=== PATIENT | female | born 1950 | race Hispanic/Latino ===

== ENCOUNTER → 2021-09-19 10:19 | Outpatient (CLI) | payer MEDICARE, SELFPAY ==
[2021-09-19 11:12] LABS: Add Manual Diff / Slide Review NO; Basophils Absolute Auto 100 /uL (0-100); Basophils Percent Auto 0.7 % (0-2); Eosinophils Absolute Auto 100 /uL (0-450); Eosinophils Percent Auto 0.9 % (2-4); Hematocrit 40.7 % (36-46); Hemoglobin 13.5 g/dL (12.0-16.0); Lymphocytes Absolute Auto 2800 /uL (1100-4500); Lymphocytes Percent Auto 32.6 % (25-40); Mean Corpuscular HGB Conc 33.1 % (30-36); Mean Corpuscular Hemoglobin 29.5 PG (26-34); Mean Corpuscular Volume 89.1 fL (80-100); Monocytes Absolute Auto 600 /uL (0-900); Monocytes Percent Auto 7.3 % (3-14); Neutrophils Absolute Auto 5000 /uL (1500-7000); Neutrophils Percent Auto 58.5 % (50-75); Platelet Count 225 X10^3/uL (150-400); Red Blood Cell Count 4.57 X10^6/uL (4.0-5.2); Red Cell Distribution Width 13.6 % (11.6-14.8); White Blood Cell Count 8.5 X10^3/uL (4.5-11.0)
[2021-09-19 11:20] LABS: Hemoglobin A1C% w Est Avg Glu 6.9 % (4.0-6.0)
[2021-09-19 11:59] LABS: Alanine Aminotransferase 32 IU/L (<35); Albumin 4.8 g/dL (3.5-5.0); Albumin Globulin Ratio 1.2 (1.0-2.8); Alkaline Phosphatase 69 U/L (38-126); Aspartate Aminotransferase 38 IU/L (14-36); BUN Creatinine Ratio 18.9 (6-22); Bilirubin Total 0.5 mg/dL (0.2-1.3); Blood Urea Nitrogen 14 mg/dL (7-17); Calcium 9.2 mg/dL (8.4-10.2); Carbon Dioxide 30 mmol/L (22-32); Chloride 103 mmol/L (98-107); Cholesterol 236 mg/dL (140-199); Estimated Glomerular Filt Rate > 60.0 mL/min (>60); Globulin 4.1 g/dL (1.7-4.1); Glucose 129 mg/dL (80-110); HDL Cholesterol 50 mg/dL (40-60); HEMOLYSIS 30 (0-50); LDL Cholesterol Calculated 163 mg/dL (<100); Potassium 3.8 mmol/L (3.4-5.1); Sodium 142 mmol/L (137-145); Total Protein 8.9 g/dL (6.3-8.2); Triglycerides 114 mg/dL (35-150)
[2021-09-19 13:29] LABS: TSH w/ Reflex to FT4 1.98 uIU/mL (0.47-4.68)
[2021-09-19 15:52] LABS: Creatinine Urine Random 133.6 mg/dL
[2021-09-19 15:54] LABS: Microalbumi Creatinin Ratio Ur 65.8 ug/mg CR (<30); Microalbumin Urine Random 8.8 mg/dL (0-1.6)
== END ==
PROVIDERS: PCP Internal Medicine; Referring Provider Internal Medicine; Visit Provider Internal Medicine
DX: E11.69 Type 2 diabetes mellitus with other specified complication (principal); E78.2 Mixed hyperlipidemia; E78.5 Hyperlipidemia, unspecified
CPT/HCPCS: 36415; 80053; 80061; 82043; 82570; 83036; 84443; 85025

== ENCOUNTER → 2021-12-19 10:43 | Outpatient (CLI) | payer MEDICARE, SELFPAY ==
[2021-12-19 12:21] LABS: Hemoglobin A1C% w Est Avg Glu 6.8 % (4.0-6.0)
[2021-12-19 12:23] LABS: Aspartate Aminotransferase 26 IU/L (14-36); Cholesterol 112 mg/dL (140-199); Glucose 84 mg/dL (80-110); HDL Cholesterol 47 mg/dL (40-60); LDL Cholesterol Calculated 48 mg/dL (<100); Triglycerides 86 mg/dL (35-150)
== END ==
PROVIDERS: PCP Internal Medicine; Referring Provider Internal Medicine; Visit Provider Internal Medicine
DX: E11.69 Type 2 diabetes mellitus with other specified complication (principal); E78.2 Mixed hyperlipidemia; E78.5 Hyperlipidemia, unspecified
CPT/HCPCS: 36415; 80061; 82947; 83036; 84450

== ENCOUNTER → 2022-01-05 11:28 | Outpatient (CLI) | payer MEDICARE, SELFPAY ==
--- NOTE | 2022-01-05 11:29 | DI.MG.S_ITS ---
BILATERAL DIGITAL SCREENING MAMMOGRAM 3D/2D WITH CAD: 01/05/2022 CLINICAL: Baseline by default. No prior exams were available for comparison. The tissue of both breasts is predominantly fatty. Current study was also evaluated with a Computer Aided Detection (CAD) system. There is a benign area of fat necrosis in the right breast. There also are benign calcifications in the right breast. No significant masses, calcifications, or other findings are seen in either breast. IMPRESSION: BENIGN There is no mammographic evidence of malignancy. A 1 year screening mammogram is recommended. Based on the Tyrer Cuzick model (a risk assessment model) the patient's lifetime risk is 2.4% and her 10 year risk is 1.4%. According to the ACR, ACS, and NCCN guidelines, an annual breast MRI exam along with mammogram is recommended if the patient's lifetime risk is 20% or greater. This exam was interpreted at Station ID: [id number]. NOTE: For mammograms, a report in lay terms will be sent to the patient. Approximately 15% of breast malignancies will not be visualized mammographically. In the management of a palpable breast mass, a negative mammogram must not discourage biopsy of a clinically suspicious lesion. Electronically Signed By: Margarita richards/kati:01/05/2022 14:52:53 letter sent: Normal Exam ACR BI-RADS Category 2: Benign Finding(s) 3342F
== END ==
PROVIDERS: PCP Internal Medicine; Referring Provider Internal Medicine; Visit Provider Internal Medicine
DX: Z13.820 Encounter for screening for osteoporosis (principal); Z12.31 Encounter for screening mammogram for malignant neoplasm of breast; M85.851 Other specified disorders of bone density and structure, right thigh; M85.852 Other specified disorders of bone density and structure, left thigh; Z78.0 Asymptomatic menopausal state
CPT/HCPCS: 77063; 77067; 77080

== ENCOUNTER 2022-03-06 11:58 | Emergency (ER) | payer MEDICARE, SELFPAY ==
[2022-03-06] VITALS (7 sets, daily range): BP systolic 135–167; BP diastolic 63–77; PULSE 67–84; RESP 16; TEMP 36.3; O2SAT 96–99; BMI 32.8
--- NOTE | 2022-03-06 12:32 | DI.RAD.S_ITS ---
PROCEDURE: XR KNEE RT 3V INDICATIONS: fall TECHNIQUE: 3 views of the knee were acquired. COMPARISON: None. FINDINGS: Bones: No fractures or dislocations. No suspicious bony lesions. Soft tissues: No joint effusion. No suspicious soft tissue calcifications. IMPRESSION: No acute radiographic findings. If pain persists, followup imaging in 5-7 days is recommended to exclude occult fracture. Dictated by: Doris Joiner M.D. on 03/06/2022 at 13:03 Approved by: Doris Joiner M.D. on 03/06/2022 at 13:03
--- NOTE | 2022-03-06 12:32 | DI.CT.S_ITS ---
PROCEDURE: CT CERVICAL SPINE WO CON INDICATIONS: fall TECHNIQUE: Noncontrast 3 mm thick sections acquired from the skull base to the T4 level. Sagittal and coronal reformats were then constructed. For radiation dose reduction, the following was used: automated exposure control, adjustment of mA and/or kV according to patient size. COMPARISON: None. FINDINGS: Image quality: Excellent. Bones: No fractures or dislocations. Degenerative changes are present within the mid and lower cervical spine including intervertebral disc space narrowing, endplate sclerosis, and osteophytosis. Visualized superior ribs are intact. Soft tissues: Prevertebral soft tissues are normal in thickness. No paravertebral hematomas. No apical pneumothoraces. IMPRESSION: 1. No acute cervical spine injury. 2. Degenerative change. Dictated by: Doris Joiner M.D. on 03/06/2022 at 13:04 Approved by: Doris Joiner M.D. on 03/06/2022 at 13:06
--- NOTE | 2022-03-06 12:32 | DI.CT.S_ITS ---
PROCEDURE: CT HEAD/BRAIN WO CON INDICATIONS: fall TECHNIQUE: Noncontrast 4.5 mm thick angled axial sections acquired from the foramen magnum to the vertex, with coronal and sagittal reformats. For radiation dose reduction, the following was used: automated exposure control, adjustment of mA and/or kV according to patient size. COMPARISON: None. FINDINGS: Image quality: Excellent. CSF spaces: Basal cisterns are patent. No extra-axial fluid collections. The ventricles are symmetric in size and shape. Brain: No intracranial bleeds. There is a 2.1 x 2.0 x 2.6 cm intermediate density suprasellar mass. There is some rim calcification around this mass and bony remodeling of the sella turcica. There is mild cerebral volume loss for age, with resultant ventricular and sulcal prominence. There are periventricular and deep white matter chronic small vessel ischemic changes. There is intracranial internal carotid artery atherosclerosis. Skull and face: Calvarium and visualized facial bones appear intact, without suspicious lesions. Sinuses: Visualized sinuses and mastoids are clear. IMPRESSION: 1. No acute intracranial findings. 2. Intermediate density suprasellar mass or high density cystic lesion. Nonemergent pituitary protocol MRI of the brain recommended to further characterize this finding. Dictated by: Doris Joiner M.D. on 03/06/2022 at 13:12 Approved by: Doris Joiner M.D. on 03/06/2022 at 13:16
--- NOTE | 2022-03-06 12:32 | DI.CT.S_ITS ---
PROCEDURE: CT FACIAL BONES WO CON INDICATIONS: fall TECHNIQUE: Noncontrast 2.5 mm thick axial images acquired from the mandible through the frontal sinuses, with coronal and sagittal reformatting. For radiation dose reduction, the following was used: automated exposure control, adjustment of mA and/or kV according to patient size. COMPARISON: None. FINDINGS: Image quality: Excellent. Bones and teeth: Orbital matos are intact. Sinus matos show no fracture or deformity. Nasal bones and septum are intact. Visualized portions of the mandible demonstrate no fractures or subluxation. Zygomatic arches are intact. Pterygoid plates are intact. Visualized portions of the skull base and auditory canals are intact. Sinuses: Paranasal sinuses are aerated, without fluid levels, mucosal thickening, or mucoceles. Mastoid air cells are aerated. Soft tissues: No edema, masses, or fluid collections. No enlarged lymph nodes. No soft tissue lacerations or debris. Vascular: Visualized vascular structures appear normal in the absence of contrast. Bony vascular foramina and canals are intact. IMPRESSION: No acute maxillofacial injury. Dictated by: Doris Joiner M.D. on 03/06/2022 at 13:06 Approved by: Doris Joiner M.D. on 03/06/2022 at 13:11
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
[2022-03-06] MEDS: SODIUM CHLORIDE 0.9% 1,000 ML 1000 ML IV (13:10)
[2022-03-06 13:31] LABS: Add Manual Diff / Slide Review NO; Basophils Absolute Auto 0 /uL (0-100); Basophils Percent Auto 0.6 % (0-2); Eosinophils Absolute Auto 100 /uL (0-450); Hematocrit 38.8 % (36-46); Hemoglobin 13.1 g/dL (12.0-16.0); Lymphocytes Absolute Auto 2200 /uL (1100-4500); Lymphocytes Percent Auto 26.3 % (25-40); Mean Corpuscular HGB Conc 33.7 % (30-36); Mean Corpuscular Hemoglobin 29.4 PG (26-34); Mean Corpuscular Volume 87.1 fL (80-100); Monocytes Absolute Auto 600 /uL (0-900); Monocytes Percent Auto 7.2 % (3-14); Neutrophils Absolute Auto 5400 /uL (1500-7000); Neutrophils Percent Auto 64.9 % (50-75); Platelet Count 196 X10^3/uL (150-400); Red Blood Cell Count 4.45 X10^6/uL (4.0-5.2); Red Cell Distribution Width 14.2 % (11.6-14.8); White Blood Cell Count 8.4 X10^3/uL (4.5-11.0)
[2022-03-06 14:00] LABS: Alanine Aminotransferase 21 IU/L (<35); Albumin 4.7 g/dL (3.5-5.0); Albumin Globulin Ratio 1.2 (1.0-2.8); Alkaline Phosphatase 69 U/L (38-126); Aspartate Aminotransferase 28 IU/L (14-36); BUN Creatinine Ratio 20.8 (6-22); Bilirubin Total 0.5 mg/dL (0.2-1.3); Blood Urea Nitrogen 16 mg/dL (7-17); Calcium 9.6 mg/dL (8.4-10.2); Carbon Dioxide 29 mmol/L (22-32); Chloride 98 mmol/L (98-107); Creatine Kinase 65 U/L (30-135); Estimated Glomerular Filt Rate > 60 mL/min (>60); Globulin 3.8 g/dL (1.7-4.1); Glucose 135 mg/dL (80-110); HEMOLYSIS < 15 (0-50); Potassium 4.1 mmol/L (3.4-5.1); Sodium 139 mmol/L (137-145); Total Protein 8.5 g/dL (6.3-8.2)
[2022-03-06 14:10] LABS: Troponin I < 0.012 ng/mL (0.01-0.034)
== END 2022-03-06 15:01 | disposition home or self-care (01) ==
PROVIDERS: Emergency Provider Emergency Medicine; PCP Internal Medicine
DX: S09.93XA Unspecified injury of face, initial encounter (principal); R42 Dizziness and giddiness; R07.9 Chest pain, unspecified; W19.XXXA Unspecified fall, initial encounter
CPT/HCPCS: 36415; 70450; 70486; 72125; 73562; 80053; 82550; 84484; 85025; 93005; 99284

== ENCOUNTER → 2022-03-22 11:37 | Outpatient (CLI) | payer MEDICARE, SELFPAY ==
--- NOTE | 2022-03-22 11:38 | DI.MRI.S_ITS ---
PROCEDURE: MR BRAIN (PITUITARY) WWO CON INDICATIONS: pituitary mass TECHNIQUE: Noncontrast sagittal and axial FLAIR, axial gradient echo, axial diffusion and ADC through the brain. Thin-slice sagittal and coronal T1 spin echo, coronal T2 fast spin echo through the pituitary. After the administration contrast, optional dynamic coronal T1 spin echo, thin-slice coronal and sagittal T1 spin echo images through the pituitary fossa; axial and coronal and sagittal T1 spin echo with fat saturation through the brain. COMPARISON: [facility], CT, CT HEAD/BRAIN WO CON, 03/06/2022, 12:51. FINDINGS: Image quality: Excellent. Pituitary Gland: Arising from the sella extending into the suprasellar space, there is a focal wedging easily enhancing mass lesion measuring 2.1 x 1.5 x 2.6 cm. There is invasion the left cavernous sinus but no entrapment of the cavernous ICA which has an normal flow void. There is thinning and superior displacement of the optic chiasm. CSF Spaces: Ventricles are normal in size and shape. Basal cisterns are patent. No extra-axial fluid collections. Brain: No intracranial bleeds or mass effects. No abnormal intracranial enhancement. Birch-white matter interface is intact. Diffusion weighted images demonstrate no infarct. Brainstem is normal. Normal intravascular flow voids are present. Skull and face: Calvarial marrow is normal in signal. Orbits appear normal. Sinuses: Sinuses and mastoids are clear. 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 There is invasion of the left cavernous sinus and superior displacement of the optic chiasm Approved by: Salvador Baez M.D. on 03/22/2022 at 16:54
== END ==
PROVIDERS: PCP Internal Medicine; Referring Provider Internal Medicine; Visit Provider Internal Medicine
DX: E23.6 Other disorders of pituitary gland (principal)
CPT/HCPCS: 70553; A9579

== ENCOUNTER → 2022-03-23 16:53 | Outpatient (CLI) | payer MEDICARE, SELFPAY ==
[2022-03-23 18:34] LABS: Luteinizing Hormone 2.08 mIU/mL; Prolactin 42.4 ng/mL (3.0-18.6)
[2022-03-23 18:48] LABS: Cortisol Random 6.43 ug/dL
[2022-03-23 19:32] LABS: TSH w/ Reflex to FT4 2.24 uIU/mL (0.47-4.68)
== END ==
PROVIDERS: PCP Internal Medicine; Referring Provider Internal Medicine; Visit Provider Internal Medicine
DX: E11.69 Type 2 diabetes mellitus with other specified complication (principal); E23.6 Other disorders of pituitary gland; E78.5 Hyperlipidemia, unspecified
CPT/HCPCS: 36415; 82533; 83001; 83002; 83036; 84146; 84443

== ENCOUNTER → 2022-05-25 11:04 | Outpatient (CLI) | payer MEDICARE, SELFPAY ==
[2022-05-25 12:37] LABS: Sodium 137 mmol/L (137-145)
[2022-05-25 14:13] LABS: Prolactin 33.7 ng/mL (3.0-18.6)
[2022-05-25 15:24] LABS: Follicle Stimulating Hormone 3.33 mIU/mL
== END ==
PROVIDERS: PCP Internal Medicine; Referring Provider Physician Assistant; Visit Provider Physician Assistant
DX: E11.69 Type 2 diabetes mellitus with other specified complication (principal); D49.7 Neoplasm of unspecified behavior of endocrine glands and other parts of nervous system; E23.6 Other disorders of pituitary gland; E78.5 Hyperlipidemia, unspecified
CPT/HCPCS: 36415; 83001; 83036; 84146; 84295

== ENCOUNTER 2022-05-28 08:59 | Emergency (ER) | payer MEDICARE, SELFPAY ==
[2022-05-28 09:16] VITALS: BP 144/75; PULSE 109; RESP 18; TEMP 36.4; O2SAT 98; BMI 30.7
--- NOTE | 2022-05-28 09:30 | DI.CT.S_ITS ---
PROCEDURE: CT HEAD/BRAIN WO CON INDICATIONS: post tumor removal TECHNIQUE: Noncontrast 4.5 mm thick angled axial sections acquired from the foramen magnum to the vertex, with coronal and sagittal reformats. For radiation dose reduction, the following was used: automated exposure control, adjustment of mA and/or kV according to patient size. COMPARISON: [facility], CT, CT HEAD/BRAIN WO CON, 03/06/2022, 12:51. FINDINGS: Image quality: Excellent CSF spaces: Basal cisterns are patent. Lateral ventricles are symmetric. Volume: [id number] volume loss Brain: No acute intracranial hemorrhage. The sella, there is hyperdensity, packing, and postoperative changes. Size at hyperdensity is decreased compared to 03/06/2022. Rim calcifications are present. No gross loss of red-white differentiation. Craniofacial structures: Postoperative sinus opacification. IMPRESSION: Postoperative changes of the sella and paranasal sinuses. There is remaining hyperdensity of the pituitary region mass likely representing a combination postsurgical changes and possible residual lesion. Consider MRI surveillance. Otherwise no acute intracranial changes Dictated by: Rober Sanchez M.D. on 05/28/2022 at 9:34 Approved by: Rober Sanchez M.D. on 05/28/2022 at 9:38
--- NOTE | 2022-05-28 09:30 | ED.EPISTAXIS ---
HPI - Epistaxis General Chief complaint: Nasal Problem Stated complaint: NOSE BLEED 30MIN, BRAIN SURGERY 05/19 Time Seen by Provider: 05/28/22 09:13 Source: family Mode of arrival: Wheelchair History of Present Illness HPI Narrative: Patient is a 72-year-old female history of type 2 diabetes hypertension presenting after brain tumor removal a [facility] on May. This morning she woke up with epistaxis resting greater than 30 minutes it was recommended that she come to the ED for further evaluation. She is no numbness tingling weakness nausea vomiting chest pain or other symptoms. Bleeding now seems to have stopped. She is not on any antiplatelet or anticoagulation medication. Records from [facility] have been requested Related Data Previous Rx's Medication Instructions Recorded rosuvastatin 10 mg tablet 10 mg PO DAILY #90 tabs 09/19/21 amlodipine 2.5 mg tablet 2.5 mg PO BEDTIME #90 tabs 12/19/21 glyburide 5 mg tablet 5 mg PO BID #180 tabs 03/28/22 losartan 50 mg tablet 50 mg PO BID #180 tabs 03/28/22 metformin 850 mg tablet 850 mg PO BID #180 tabs 03/28/22 Allergies Allergy/AdvReac Type Severity Reaction Status Date / Time No Known Drug Allergies Allergy Verified 05/28/22 09:16 Review of Systems Review of Systems Narrative: GENERAL: Denies chills, fatigue, malaise, fever, sweats, travel HEENT: Denies sinus pain, ear pain, sore throat, difficulty swallowing, neck pain RESPIRATORY: Denies dyspnea, cough, wheezing, hemoptysis, sputum. CARDIOVASCULAR: Denies chest pain, palpitations, orthopnea, edema GASTROINTESTINAL: Denies nausea, vomiting, abdominal pain, diarrhea, constipation, melena. : Denies dysuria, frequency, incontinence, hematuria, urinary retention, flank pain. MUSCULOSKELETAL: Denies weakness, joint pain, or bony pain SKIN: No rash, no erythema, no pruritus NEUROLOGIC: Denies weakness, dizziness, headache, numbness, change in speech, confusion PSYCHIATRIC: No concerning psychosocial issues. 12 point review of systems is negative except for those stated above and HPI Patient History Medical History DM type 2 with diabetic dyslipidemia Essential hypertension History of urinary incontinence Mixed hyperlipidemia Obesity (BMI 30.0-34.9) Pituitary mass Surgical History Anesthesia History of surgery (~1972) History of tubal ligation Family History Father Diabetes mellitus Mother Diabetes mellitus Brother Diabetes mellitus Social History marital status: details: Three children (one /miscarriage) Smoking Status: Never smoker Smoking Status: Never smoker alcohol intake frequency: 0-2 drinks per day Substance Use Type: does not use Exam Initial Vital Signs Initial Vital Signs: Vital Signs Temperature 97.5 F L 05/28/22 09:16 Pulse Rate 109 H 05/28/22 09:16 Respiratory Rate 18 05/28/22 09:16 Blood Pressure 144/75 H 05/28/22 09:16 Pulse Oximetry 98 05/28/22 09:16 Oxygen Delivery Method 05/28/22 09:16 GENERAL: Alert pleasant 72-year-old female and in no acute distress. HEENT: Head atraumatic,EOMI, pupils reactive, face symmetric, moist mucous membranes NOSE: Epistaxis seems controlled at this time. CARDIOVASCULAR: Regular rate and rhythm without murmurs, rubs or gallops. RESPIRATORY: Breath sounds equal bilaterally, no wheezes rales or rhonchi. ABDOMEN: Soft, nontender. Normoactive bowel sounds all 4 quadrants. No guarding or rebound. EXTREMITIES: Normal range of motion, no clubbing or edema. Neurovascularly intact NEUROLOGICAL: Alert and oriented x4.Normal gait and speech. Cranial nerves II through XII grossly intact. Principal Mechanical Engineer strength equal bilaterally moving lower extremities equally SKIN: Warm, dry, no laceration, no petechiae, no rashes or lesions. Course Orders Ordered: ED Orders 05/28/22 09:30 CT head/brain wo con Stat Vital Signs Vital signs: Vital Signs - 8 hr 05/28/22 09:16 05/28/22 12:04 Temperature 97.5 F L Pulse Rate 109 H 92 H Respiratory Rate 18 18 Blood Pressure 144/75 H 159/74 H Pulse Oximetry 98 96 Oxygen Delivery Method Room Air Room Air MDM - Epistaxis Imaging Data CT scan - head: Radiologist's Impression: Signed Patient: Annette Alas MR#: [id number] : 1950 Acct:[id number] Age/Sex: 72 / F Date of Service: 05/28/22 Loc: ED Accession Number: [id number] ?? Procedure: CT head/brain wo con Ordering Provider: Franny Hunter D.O. PROCEDURE:? CT HEAD/BRAIN WO CON ? INDICATIONS:? post tumor removal ? TECHNIQUE:? Noncontrast 4.5 mm thick angled axial sections acquired from the foramen magnum to the vertex, with coronal and sagittal reformats.? For radiation dose reduction, the following was used:? automated exposure control, adjustment of mA and/or kV according to patient size.? ? COMPARISON:? [facility], CT, CT HEAD/BRAIN WO CON, 03/06/2022, 12:51. ? FINDINGS:? Image quality: Excellent ? CSF spaces: Basal cisterns are patent. Lateral ventricles are symmetric. Volume:? Adpt-ji-qvkeqsrj volume loss ? Brain:? No acute intracranial hemorrhage.? The sella, there is hyperdensity, packing, and postoperative changes.? Size at hyperdensity is decreased compared to 03/06/2022.? Rim calcifications are present. No gross loss of red-white differentiation. ? Craniofacial structures:? Postoperative sinus opacification. ? IMPRESSION:? Postoperative changes of the sella and paranasal sinuses.? There is remaining hyperdensity of the pituitary region mass likely representing a combination postsurgical changes and possible residual lesion.? Consider MRI surveillance. Otherwise no acute intracranial changes? ? ? Dictated by: Rober Sanchez M.D. on 05/28/2022 at 9:34 ? ? Approved by: Rober Sanchez M.D. on 05/28/2022 at 9:38 ? [facility] Narrative Medical decision making narrative: Patient recently had pituitary adenoma removed done transnasally she is postop day 9. Her epistaxis is well controlled. She is not on any anticoagulation. She is neurovascularly intact. I spoke with Dr. Edmonds at [facility] who states that at this time patient can be discharged he has reviewed the CT. Patient is ambulatory in the ED able to go the restroom. She is afebrile. At this time there is no need for blood work or any sort of further workup or intervention. Discharge Plan Departure Patient Disposition: Home Clinical Impression: Epistaxis Instructions: DI for Nosebleed Activity Restrictions/Additional Instructions: *You have been diagnosed with epistaxis *What to do: At this time he is nasal clamp if you should have further bleeding I discussed with Neurosurgery. Please follow-up as directed *Continue to take medications as directed *Follow up with your primary care provider in 2-3 days or call [phone] *Return to ER if you should have increasing bleeding more than 30 minutes despite clamp. Weakness numbness tingling vomiting or any new, worsening or concerning symptoms Prescriptions: No Action glyburide 5 mg tablet 5 mg PO BID Qty: 180 1RF metformin 850 mg tablet 850 mg PO BID Qty: 180 1RF losartan 50 mg tablet 50 mg PO BID Qty: 180 1RF rosuvastatin 10 mg tablet 10 mg PO DAILY Qty: 90 3RF amlodipine 2.5 mg tablet 2.5 mg PO BEDTIME Qty: 90 3RF Referrals: Thanh Corea MD [Primary Care Provider] - Visit Report Forms: Patient Portal/API
[2022-05-28 12:04] VITALS: BP 159/74; PULSE 92; RESP 18; O2SAT 96
== END 2022-05-28 12:07 | disposition home or self-care (01) ==
PROVIDERS: Emergency Provider Emergency Medicine; PCP Internal Medicine
DX: R04.0 Epistaxis (principal); Z98.890 Other specified postprocedural states; Z86.69 Personal history of other diseases of the nervous system and sense organs
CPT/HCPCS: 70450; 99281; 99283

== ENCOUNTER → 2022-08-09 09:13 | Outpatient (CLI) | payer MEDICARE, SELFPAY ==
[2022-08-09 13:19] LABS: Free T4, Direct Thyroxine 1.01 ng/dL (0.78-2.19)
[2022-08-09 13:25] LABS: Prolactin 19.9 ng/mL (3.0-18.6)
[2022-08-09 13:33] LABS: Thyroid Stimulating Hormone 3.59 uIU/mL (0.47-4.68)
[2022-08-09 13:39] LABS: Cortisol Random 11.7 ug/dL
== END ==
PROVIDERS: PCP Internal Medicine; Referring Provider Internal Medicine Endocrinology, Diabetes & Metabolism; Visit Provider Internal Medicine Endocrinology, Diabetes & Metabolism
DX: D35.2 Benign neoplasm of pituitary gland (principal)
CPT/HCPCS: 36415; 82533; 84146; 84305; 84436; 84439; 84443

== ENCOUNTER → 2022-12-25 15:13 | Outpatient (CLI) | payer MEDICARE, SELFPAY ==
[2022-12-25 16:09] LABS: Aspartate Aminotransferase 25 IU/L (14-36); Blood Urea Nitrogen 15 mg/dL (7-17); Calcium 9.3 mg/dL (8.4-10.2); Carbon Dioxide 31 mmol/L (22-32); Chloride 104 mmol/L (98-107); Cholesterol 129 mg/dL (140-199); Estimated Glomerular Filt Rate > 60 mL/min (>60); Glucose 126 mg/dL (80-110); HDL Cholesterol 59 mg/dL (40-60); HEMOLYSIS < 15 (0-50); LDL Cholesterol Calculated 45 mg/dL (<100); Potassium 3.6 mmol/L (3.4-5.1); Sodium 141 mmol/L (137-145); Triglycerides 123 mg/dL (35-150)
[2022-12-25 17:37] LABS: Creatinine Urine Random 71.8 mg/dL
[2022-12-25 17:40] LABS: Microalbumi Creatinin Ratio Ur 22.2 ug/mg CR (<30); Microalbumin Urine Random 1.6 mg/dL (0-1.6)
[2022-12-26 03:21] LABS: x Labcorp Estim. Avg Glu (eAG) 151 mg/dL (.); x Labcorp Hemoglobin A1c 6.9 % (4.8-5.6)
== END ==
PROVIDERS: PCP Internal Medicine; Referring Provider Internal Medicine; Visit Provider Internal Medicine
DX: E11.69 Type 2 diabetes mellitus with other specified complication (principal); E78.2 Mixed hyperlipidemia; E78.5 Hyperlipidemia, unspecified; I10 Essential (primary) hypertension
CPT/HCPCS: 36415; 80048; 80061; 82043; 82570; 83036; 84450

== ENCOUNTER → 2023-01-08 14:56 | Outpatient (CLI) | payer MEDICARE, SELFPAY ==
--- NOTE | 2023-01-08 | DI.MG.S_ITS ---
BILATERAL DIGITAL SCREENING MAMMOGRAM 3D/2D WITH CAD: 01/08/2023 CLINICAL: Routine screening. Comparison is made to exam dated: 01/05/2022 mammogram - [facility]. Both breasts are almost entirely fatty (category a/<25% glandular tissue). Current study was also evaluated with a Computer Aided Detection (CAD) system. There is a benign area of fat necrosis in the right breast. There also are benign calcifications in the right breast. No significant masses, calcifications, or other findings are seen in either breast. There has been no significant interval change. IMPRESSION: BENIGN There is no mammographic evidence of malignancy. A 1 year screening mammogram is recommended. Based on the Tyrer Cuzick model (a risk assessment model) the patient's lifetime risk is 2.2% and her 10 year risk is 1.4%. According to the ACR, ACS, and NCCN guidelines, an annual breast MRI exam along with mammogram is recommended if the patient's lifetime risk is 20% or greater. This exam was interpreted at Station ID: [id number]. NOTE: For mammograms, a report in lay terms will be sent to the patient. Approximately 15% of breast malignancies will not be visualized mammographically. In the management of a palpable breast mass, a negative mammogram must not discourage biopsy of a clinically suspicious lesion. Electronically Signed By: Doris oliveira/kati:01/08/2023 16:46:03 letter sent: Normal Exam ACR BI-RADS Category 2: Benign Finding(s) 3342F
== END ==
PROVIDERS: PCP Internal Medicine; Referring Provider Internal Medicine; Visit Provider Internal Medicine
DX: Z12.31 Encounter for screening mammogram for malignant neoplasm of breast (principal)
CPT/HCPCS: 77063; 77067

== ENCOUNTER 2023-03-02 09:08 | Day surgery (SDC) | payer MEDICARE, SELFPAY ==
[2023-03-02 09:28] VITALS: BP 136/78; PULSE 96; RESP 16; TEMP 36.3; O2SAT 98; BMI 29.6
[2023-03-02] MEDS: LACTATED RINGERS 1,000 ML 150 ML IV (09:42)
--- NOTE | 2023-03-02 10:26 | PM.HP.1 ---
History of Present Illness History of Present Illness Date Patient Seen: 03/02/23 Time Patient Seen: 10:26 Chief complaint: [facility] [place] Narrative: Colon cancer screening w/o concerning symptoms. Had one prior scope many years ago [facility] Medical History DM type 2 with diabetic dyslipidemia Essential hypertension History of prolactinoma History of urinary incontinence Mixed hyperlipidemia Obesity (BMI 30.0-34.9) Overweight Prolactinoma Surgical History Anesthesia History of surgery (~1971) History of tubal ligation Status post transsphenoidal pituitary resection Family History Father Diabetes mellitus Mother Diabetes mellitus Brother Diabetes mellitus Social History marital status: details: Three children (one /miscarriage) household members: family Smoking Status: Never smoker Meds Home Medications and Allergies Home Medications Medication Instructions Recorded Confirmed Type losartan 50 mg tablet 50 mg PO BID #180 tabs 10/02/22 03/02/23 Rx metformin 850 mg tablet 850 mg PO BID #180 tabs 10/02/22 03/02/23 Rx glipizide 5 mg tablet 5 mg PO BID #180 tabs 10/09/22 03/02/23 Rx rosuvastatin 10 mg tablet 10 mg PO DAILY #90 tabs 10/09/22 03/02/23 Rx amlodipine 2.5 mg tablet 2.5 mg PO BEDTIME #90 tabs 01/01/23 03/02/23 Rx Allergies Allergy/AdvReac Type Severity Reaction Status Date / Time No Known Drug Allergies Allergy Verified 03/02/23 09:25 Review of Systems Review of Systems ROS: Yes All systems reviewed with the patient and are negative except as otherwise documented Exam Vital Signs (past 8 hours): - 03/02/23 09:28 Temperature 97.4 F L Pulse Rate 96 H Respiratory Rate 16 Blood Pressure 136/78 Pulse Oximetry 98 Oxygen Delivery Method Room Air Oxygen Delivery Method Room Air Const General: cooperative, healthy appearing and comfortable Nutritional Appearance: average body habitus HENMT Head: normocephalic and atraumatic Face and sinus: normal facial exam Eyes Sclera: sclerae normal Neck Neck: trachea midline Resp Effort & Inspection: normal respiratory effort and able to speak in complete sentences Cardio Rate: tachycardic Rhythm: regular rhythm GI Palpation: soft Skin General: turgor normal Neuro General: patient alert, patient awake and patient oriented x3 Cognition: normal cognition Psych Judgment: judgment good Objective ECG Impression: colon cancer screening using colonoscopy with anesthesia Assessment & Plan Time Spent With Patient Time with patient: less than 30 minutes
--- NOTE | 2023-03-02 10:51 | PM.OP.COLON ---
Operative Date/Time/Diagnoses Date of procedure: 03/02/23 Time of procedure: 10:51 Pre-op diagnosis: Colon cancer screening Post-op diagnosis: same Procedure & Clinicians Study performed: Colonoscopy with anesthesia Same procedure as scheduled: Yes Indications: Colon cancer screening Surgeon: Kathryn Singh Procedure Notes Procedure in detail: Preop diagnosis: Colon cancer screening Postop diagnosis: Same Operative procedure: Colonoscopy with anesthesia Surgeon: Ester Singh MD Findings: Mild small diverticuli within the sigmoid colon, no polyps no masses. Procedure: Patient placed in a lateral position. Rectal exam performed showing normal tone no masses. Colonoscope inserted into the rectum and advanced to ileocecal valve with minimal difficulty. Insufflation and extraction of the scope and the above findings. Retroflex was included in the rectum. Impression: Normal colonoscopy with mild small diverticuli in the sigmoid colon. No polyps. Plan: Repeat colonoscopy in 10 years unless otherwise indicated by change in clinical condition Specimen(s): none sent Complications: none Post-procedure Recommendations: Colonoscopy in 10 years Follow up: as needed Disposition: PACU
[2023-03-02 10:54] VITALS: BP 80/44; PULSE 76; RESP 14; TEMP 36.3; O2SAT 97
[2023-03-02 10:59] VITALS: BP 95/46; PULSE 77; RESP 11; O2SAT 97
[2023-03-02 11:09] VITALS: BP 101/62; PULSE 76; RESP 18; O2SAT 94
== END 2023-03-02 11:31 | disposition home or self-care (01) ==
PROVIDERS: PCP Internal Medicine; Referring Provider Surgery; Visit Provider Surgery
PROC: 0DJD8ZZ Inspection of Lower Intestinal Tract, Via Natural or Artificial Opening Endoscopic (ICD-10-PCS; CPT 45378; principal; 2023-03-02 10:15)
DX: Z12.11 Encounter for screening for malignant neoplasm of colon (principal); K57.30 Diverticulosis of large intestine without perforation or abscess without bleeding
CPT/HCPCS: G0121; J2704

== ENCOUNTER → 2023-07-02 14:44 | Outpatient (CLI) | payer OTHER, SELFPAY ==
[2023-07-02 17:22] LABS: Blood Urea Nitrogen 13 mg/dL (7-17); Calcium 9.5 mg/dL (8.4-10.2); Carbon Dioxide 26 mmol/L (22-32); Chloride 104 mmol/L (98-107); Estimated Glomerular Filt Rate > 60 mL/min (>60); Glucose 113 mg/dL (80-110); HEMOLYSIS < 15 (0-50); Potassium 3.8 mmol/L (3.4-5.1); Sodium 141 mmol/L (137-145)
[2023-07-03 11:09] LABS: Hemoglobin A1C% w Est Avg Glu 6.7 % (4.0-6.0)
== END ==
PROVIDERS: PCP Internal Medicine; Referring Provider Internal Medicine; Visit Provider Internal Medicine
DX: E11.69 Type 2 diabetes mellitus with other specified complication (principal); E78.5 Hyperlipidemia, unspecified; I10 Essential (primary) hypertension
CPT/HCPCS: 36415; 80048; 83036

== ENCOUNTER → 2024-01-02 14:45 | Outpatient (CLI) | payer MEDICARE, SELFPAY ==
[2024-01-02 17:01] LABS: Aspartate Aminotransferase 26 IU/L (14-36); Blood Urea Nitrogen 14 mg/dL (7-17); Calcium 9.4 mg/dL (8.4-10.2); Carbon Dioxide 27 mmol/L (22-32); Chloride 106 mmol/L (98-107); Cholesterol 128 mg/dL (140-199); Estimated Glomerular Filt Rate > 60 mL/min (>60); Glucose 145 mg/dL (80-110); HDL Cholesterol 60 mg/dL (40-60); HEMOLYSIS < 15 (0-50); LDL Cholesterol Calculated 42 mg/dL (<100); Potassium 3.7 mmol/L (3.4-5.1); Sodium 142 mmol/L (137-145); Triglycerides 132 mg/dL (35-150)
[2024-01-02 17:10] LABS: Creatinine Urine Random 94.52 mg/dL
== END ==
LOC: LAB 14:46
PROVIDERS: PCP Internal Medicine; Referring Provider Internal Medicine; Visit Provider Internal Medicine
DX: E11.69 Type 2 diabetes mellitus with other specified complication (principal); E78.2 Mixed hyperlipidemia; I10 Essential (primary) hypertension; E78.5 Hyperlipidemia, unspecified
CPT/HCPCS: 36415; 80048; 80061; 82043; 82570; 83036; 84450

== ENCOUNTER → 2024-01-22 15:07 | Outpatient (CLI) | payer MEDICARE, SELFPAY ==
--- NOTE | 2024-01-22 15:09 | DI.MG.S_ITS ---
BILATERAL DIGITAL SCREENING MAMMOGRAM 3D/2D WITH CAD: 01/22/2024 CLINICAL: Routine screening. Comparison is made to exams dated: 01/08/2023 mammogram and 01/05/2022 mammogram - [facility]. Both breasts are almost entirely fatty (category a/<25% glandular tissue). Current study was also evaluated with a Computer Aided Detection (CAD) system. There is a benign area of fat necrosis in the right breast. There also are benign calcifications in the right breast. No significant masses, calcifications, or other findings are seen in either breast. There has been no significant interval change. IMPRESSION: BENIGN There is no mammographic evidence of malignancy. A 1 year screening mammogram is recommended. Based on the Tyrer Cuzick model (a risk assessment model) the patient's lifetime risk is 2.0% and her 10 year risk is 1.5%. According to the ACR, ACS, and NCCN guidelines, an annual breast MRI exam along with mammogram is recommended if the patient's lifetime risk is 20% or greater. This exam was interpreted at Station ID: [id number]. NOTE: For mammograms, a report in lay terms will be sent to the patient. Approximately 15% of breast malignancies will not be visualized mammographically. In the management of a palpable breast mass, a negative mammogram must not discourage biopsy of a clinically suspicious lesion. Electronically Signed By: Farhan colby/kati:01/24/2024 09:12:18 letter sent: Normal Exam ACR BI-RADS Category 2: Benign Finding(s) 3342F
== END ==
PROVIDERS: PCP Internal Medicine; Referring Provider Internal Medicine; Visit Provider Internal Medicine
DX: Z12.31 Encounter for screening mammogram for malignant neoplasm of breast (principal); R92.313 Mammographic fatty tissue density, bilateral breasts
CPT/HCPCS: 77063; 77067

== ENCOUNTER 2024-04-04 13:48 | Emergency (ER) | payer MEDICARE, SELFPAY ==
[2024-04-04] VITALS (14 sets, daily range): BP systolic 127–155; BP diastolic 62–71; PULSE 74–101; RESP 8–21; TEMP 36.1; O2SAT 95–99; BMI 29.9
--- NOTE | 2024-04-04 14:05 | DI.RAD.S_ITS ---
PROCEDURE: XR CHEST 2V INDICATIONS: chest pain TECHNIQUE: 2 views of the chest were acquired. COMPARISON: None. FINDINGS: Surgical changes and devices: None. Lungs and pleura: Lungs are clear. No pleural effusions or pneumothorax. Mediastinum: Mediastinal contours are normal. Heart size is normal. Bones and chest wall: No suspicious bony abnormalities. Soft tissues appear unremarkable. IMPRESSION: No acute cardiopulmonary pathology. Dictated by: Edwin Pérez M.D. on 04/04/2024 at 14:24 Approved by: Edwin Pérez M.D. on 04/04/2024 at 14:31
--- NOTE | 2024-04-04 14:08 | EKG_ITS ---
[address] [address] Test Date: 2024-04-04 Pat Name: Annette Alas Department: Room: Gender: Female Clinical Documentation Nurse: MESERET : 1950 Requested By: Order Number: [id number] Reading MD: Barrera Agosto Measurements Intervals [place] Rate: 97 P: 62 VA: 170 QRS: 91 QRSD: 138 T: 30 QT: 400 QTc: 508 Interpretive Statements Normal sinus rhythm Right bundle branch block Inferior infarct , age undetermined Electronically Signed On 04-04-2024 17:29:12 PDT by Barrera Agosto
[2024-04-04 14:26] LABS: Add Manual Diff / Slide Review NO; Basophils Absolute Auto 0 /uL (0-100); Basophils Percent Auto 0.5 % (0-2); Eosinophils Absolute Auto 100 /uL (0-450); Eosinophils Percent Auto 1.2 % (2-4); Hematocrit 37.1 % (36-46); Lymphocytes Absolute Auto 2500 /uL (1100-4500); Lymphocytes Percent Auto 34.4 % (25-40); Mean Corpuscular HGB Conc 32.5 % (30-36); Mean Corpuscular Hemoglobin 28.5 PG (26-34); Mean Corpuscular Volume 87.9 fL (80-100); Monocytes Absolute Auto 700 /uL (0-900); Monocytes Percent Auto 8.9 % (3-14); Neutrophils Absolute Auto 4100 /uL (1500-7000); Platelet Count 191 X10^3/uL (150-400); Red Blood Cell Count 4.21 X10^6/uL (4.0-5.2); Red Cell Distribution Width 14.7 % (11.6-14.8); White Blood Cell Count 7.4 X10^3/uL (4.5-11.0)
[2024-04-04 14:32] LABS: INR 1.1 (0.9-1.3); Prothrombin Time 12.3 SECONDS (9.4-12.5)
[2024-04-04 14:35] LABS: PTT Partial Thromboplastin Tim 36 SECONDS (25.1-36.5)
[2024-04-04 14:37] LABS: Alanine Aminotransferase 21 IU/L (<35); Albumin 4.7 g/dL (3.5-5.0); Albumin Globulin Ratio 1.6 (1.0-2.8); Alkaline Phosphatase 62 U/L (38-126); Aspartate Aminotransferase 27 IU/L (14-36); BUN Creatinine Ratio 15.7 (6-22); Bilirubin Total 0.6 mg/dL (0.2-1.3); Blood Urea Nitrogen 13 mg/dL (7-17); Calcium 9.5 mg/dL (8.4-10.2); Carbon Dioxide 26 mmol/L (22-32); Chloride 104 mmol/L (98-107); Creatine Kinase 69 U/L (30-135); Estimated Glomerular Filt Rate > 60 mL/min (>60); Glucose 245 mg/dL (80-110); HEMOLYSIS < 15 (0-50); Lipase 100 U/L (23-300); Magnesium 1.6 mg/dL (1.6-2.3); Sodium 138 mmol/L (137-145); Total Protein 7.7 g/dL (6.3-8.2)
--- NOTE | 2024-04-04 14:44 | ED.CHESTPAIN ---
HPI - Chest Pain General Chief Complaint: Chest Pain Stated Complaint: chest discomfort Time Seen by Provider: 04/04/24 14:33 Source: patient Mode of arrival: Ambulatory Limitations: no limitations History of Present Illness HPI narrative: Patient here with daughter. Complains off and on chest pain for the past 2 weeks. It is substernal pressure 8/10 but currently no chest pain. No nausea. Has had exertional chest discomfort recently. Never had a stress test before. Patient does have history of right bundle-branch block, history of hypertension hyperlipidemia and diabetes. She does not smoke. No history of blood clots in legs or lungs. Related Data Home Medications Medication Instructions Recorded Confirmed latanoprost 0.005 % eye drops drp EYE-BOTH 04/09/23 01/02/24 Previous Rx's Medication Instructions Recorded losartan 50 mg tablet 50 mg PO BID #180 tabs 09/27/23 metformin 850 mg tablet 850 mg PO BID #180 tabs 09/27/23 glipizide 5 mg tablet 5 mg PO BID #180 tabs 09/28/23 rosuvastatin 10 mg tablet 10 mg PO DAILY #90 tabs 09/28/23 amlodipine 2.5 mg tablet 2.5 mg PO BEDTIME #90 tabs 12/25/23 cholecalciferol (vitamin D3) 50 50 mcg PO DAILY #90 caps 04/08/24 mcg (2,000 unit) capsule cyanocobalamin (vitamin B-12) 1,000 mcg PO DAILY #90 caps 04/08/24 1,000 mcg capsule Allergies Allergy/AdvReac Type Severity Reaction Status Date / Time No Known Drug Allergies Allergy Verified 04/04/24 14:02 Review of Systems Review of Systems Narrative: GENERAL: negative chills, fatigue, malaise, fever, sweats. HEENT: negative sinus pain, ear pain, sore throat RESPIRATORY: negative dyspnea, cough CARDIOVASCULAR: Positive chest pain, negative palpitations GASTROINTESTINAL: negative nausea, vomiting, abdominal pain : negative dysuria, frequency, hematuria MUSCULOSKELETAL: negative muscle or bony pain SKIN: negative rash, skin lesions NEUROLOGIC: negative weakness, numbness ROS Unobtainable: All systems reviewed & are unremarkable except as noted in HPI and below Patient History Medical History Overweight History of prolactinoma History of urinary incontinence Obesity (BMI 30.0-34.9) Mixed hyperlipidemia Essential hypertension DM type 2 with diabetic dyslipidemia Surgical History Status post transsphenoidal pituitary resection Anesthesia History of surgery (~1972) History of tubal ligation Family History Father Diabetes mellitus Mother Diabetes mellitus Brother Diabetes mellitus Social History marital status: details: Three children (one /miscarriage) household members: family Smoking Status: Never smoker Smoking Status: Never smoker alcohol intake frequency: holidays/special occasions only Substance Use Type: does not use Exam Narrative Exam Narrative: GENERAL: in no distress, not toxic not dyspneic HEAD: Normocephalic. EYES: Pupils equal round ENT: Mucous membranes moist. NECK: Trachea midline. CARDIOVASCULAR: Regular rate and rhythm RESPIRATORY: Clear to auscultation. Breath sounds equal bilaterally. No wheezes, rales, or rhonchi. GASTROINTESTINAL: Abdomen soft, non-tender EXTREMITIES: No gross deformities. BACK: No flank tenderness. NEURO: AOx4. SKIN: Warm and dry PSYCH: Not anxious, is cooperative Initial Vital Signs Initial Vital Signs: Vital Signs Temperature 97.0 F L 04/04/24 14:02 Pulse Rate 101 H 04/04/24 14:02 Respiratory Rate 16 04/04/24 14:02 Blood Pressure 134/65 04/04/24 14:02 Pulse Oximetry 98 04/04/24 14:02 Oxygen Delivery Method Room Air 04/04/24 14:02 Course Orders Ordered: Discontinued Medications Aspirin (Aspirin 81 Mg Chew Tab) 324 mg PO NOW ONE Stop: 04/04/24 14:45 Last Admin: 04/04/24 14:47 Dose: 324 mg Documented By: ES Vital Signs Vital signs: Vital Signs - 8 hr 04/04/24 14:02 04/04/24 14:27 04/04/24 14:30 Temperature 97.0 F L Pulse Rate 101 H 93 H 87 Respiratory Rate 16 Blood Pressure 134/65 Pulse Oximetry 98 97 97 Oxygen Delivery Method Room Air Room Air 04/04/24 14:30 04/04/24 15:00 04/04/24 15:00 Temperature Pulse Rate 84 Respiratory Rate 13 Blood Pressure 134/71 132/69 Pulse Oximetry 96 Oxygen Delivery Method 04/04/24 15:14 04/04/24 15:14 04/04/24 15:30 Temperature Pulse Rate 84 77 Respiratory Rate 14 14 Blood Pressure 155/70 H Pulse Oximetry 95 95 Oxygen Delivery Method 04/04/24 15:30 04/04/24 16:00 04/04/24 16:00 Temperature Pulse Rate 75 Respiratory Rate 21 Blood Pressure 131/68 139/71 Pulse Oximetry 99 Oxygen Delivery Method Room Air MDM - Chest Pain Lab Data 04/04/24 14:15 04/04/24 14:15 Labs: Lab Results 04/04/24 Range/Units 14:15 WBC 7.4 (4.5-11.0) X10^3/uL RBC 4.21 (4.0-5.2) X10^6/uL Hgb 12.0 (12.0-16.0) g/dL Hct 37.1 (36-46) % MCV 87.9 (80-100) fL MCH 28.5 (26-34) PG MCHC 32.5 (30-36) % RDW 14.7 (11.6-14.8) % Plt Count 191 (150-400) X10^3/uL Neut % (Auto) 55.0 (50-75) % Lymph % (Auto) 34.4 (25-40) % [place] % (Auto) 8.9 (3-14) % Eos % (Auto) 1.2 L (2-4) % Baso % (Auto) 0.5 (0-2) % Neut # (Auto) 4100 (6796-1886) /uL Lymph # (Auto) 2500 (3444-7974) /uL [place] # (Auto) 700 (0-900) /uL Eos # (Auto) 100 (0-450) /uL Baso # (Auto) 0 (0-100) /uL PT 12.3 (9.4-12.5) SECONDS INR 1.1 (0.9-1.3) APTT 36 (25.1-36.5) SECONDS Sodium 138 (137-145) mmol/L Potassium 4.0 (3.4-5.1) mmol/L Chloride 104 (98-107) mmol/L Carbon Dioxide 26 (22-32) mmol/L BUN 13 (7-17) mg/dL Creatinine 0.83 (0.52-1.04) mg/dL Estimated GFR > 60 (>60) mL/min BUN/Creatinine Ratio 15.7 (6-22) Glucose 245 H (80-110) mg/dL Calcium 9.5 (8.4-10.2) mg/dL Magnesium 1.6 (1.6-2.3) mg/dL Total Bilirubin 0.6 (0.2-1.3) mg/dL AST 27 (14-36) IU/L ALT 21 (<35) IU/L Alkaline Phosphatase 62 (38-126) U/L Total Creatine Kinase 69 (30-135) U/L Troponin I < 0.012 (0.01-0.034) ng/mL NT-Pro-B Natriuret Pep 58 (<125) pg/mL Total Protein 7.7 (6.3-8.2) g/dL Albumin 4.7 (3.5-5.0) g/dL Globulin 3.0 (1.7-4.1) g/dL Albumin/Globulin Ratio 1.6 (1.0-2.8) Lipase 100 (23-300) U/L Imaging Data Chest x-ray: Radiologist's Impression: [place] [address] XRay Report Signed Patient: Annette Alas MR#: [id number] : 1950 Acct:[id number] Age/Sex: 74 / F Date of Service: 04/04/24 Loc: ED Accession Number: [id number] Procedure: XR chest 2V Ordering Provider: Chivo Larson MD PROCEDURE: XR CHEST 2V INDICATIONS: chest pain TECHNIQUE: 2 views of the chest were acquired. COMPARISON: None. FINDINGS: Surgical changes and devices: None. Lungs and pleura: Lungs are clear. No pleural effusions or pneumothorax. Mediastinum: Mediastinal contours are normal. Heart size is normal. Bones and chest wall: No suspicious bony abnormalities. Soft tissues appear unremarkable. IMPRESSION: No acute cardiopulmonary pathology. Dictated by: Edwin Pérez M.D. on 04/04/2024 at 14:24 Approved by: Edwin Pérez M.D. on 04/04/2024 at 14:31 [facility] Narrative Medical decision making narrative: Patient here with daughter. Complains off and on chest pain for the past 2 weeks. It is substernal pressure 8/10 but currently no chest pain. No nausea. Has had exertional chest discomfort recently. Never had a stress test before. Patient does have history of right bundle-branch block, history of hypertension hyperlipidemia and diabetes. She does not smoke. No history of blood clots in legs or lungs. 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 Pertinent findings: WBC 7.4 hemoglobin 12.0 INR 1.1 sodium 138 potassium 4.0 GFR greater than 60 lipase 100 troponin less than 0.012 Independently reviewed EKG normal sinus rhythm rate 97 right bundle-branch block unchanged from March 06, 2022 at 2:37 p.m. Imaging studies independently reviewed: Chest x-ray no acute finding Consultations: 3:[address] [facility], cardiology, Dr. Pederson, agrees patient to be transferred to [facility] for stress test. 4:[address] [facility], hospitalist, Dr. Conte, she will accept patient Treatments: Aspirin Re-evaluations: Updated patient and daughter results. They are reassuring at this time however they do agree for transfer for stress test which is unavailable here this weekend. Discussion: Appropriate for transfer for higher level of care we do not have stress test over the weekend. [place] is [place] out of the country on [place] Sunday. It would be optimal to have stress test over the weekend. Patient is chest pain-free. Diagnosis: Chest pain Discharge Plan Departure Patient Disposition: [facility] Clinical Impression: Chest pain Qualifiers: Chest pain type: unspecified Qualified Code(s): R07.9 - Chest pain, unspecified Prescriptions: No Action metformin 850 mg tablet 850 mg PO BID Qty: 180 3RF losartan 50 mg tablet 50 mg PO BID Qty: 180 3RF rosuvastatin 10 mg tablet 10 mg PO DAILY Qty: 90 3RF glipizide 5 mg tablet 5 mg PO BID Qty: 180 3RF amlodipine 2.5 mg tablet 2.5 mg PO BEDTIME Qty: 90 3RF cholecalciferol (vitamin D3) 50 mcg (2,000 unit) capsule 50 mcg PO DAILY Qty: 90 3RF cyanocobalamin (vitamin B-12) 1,000 mcg capsule 1,000 mcg PO DAILY Qty: 90 3RF latanoprost 0.005 % drops EYE-BOTH Referrals: Thanh Corea MD [Primary Care Provider] -
[2024-04-04] MEDS: ASPIRIN 81 MG CHEW TAB 324 MG PO (14:47)
[2024-04-04 14:49] LABS: NT-proBNP (BNP-Adult 18+) 58 pg/mL (<125); Troponin I < 0.012 ng/mL (0.01-0.034)
--- NOTE | 2024-04-04 14:55 | PC.NURSE ---
Addendum entered by Janna Allen CNA 04/04/24 15:46: 1501: [facility], spoke with Liss, patient on wait list. Paged Dacia from Cardiology. Dacia called back 1525: [facility], spoke with Flavio, patient on wait list. Original Note: Hospital Call List for Patient Transfer [phone]: [facility], spoke with Kareen, patient on wait list.
== END 2024-04-04 19:50 | disposition short-term general hospital (02) ==
PROVIDERS: Emergency Provider Emergency Medicine; PCP Internal Medicine
DX: R07.9 Chest pain, unspecified (principal); I10 Essential (primary) hypertension; E78.5 Hyperlipidemia, unspecified; I45.10 Unspecified right bundle-branch block; Z79.899 Other long term (current) drug therapy
CPT/HCPCS: 36415; 71046; 80053; 82550; 83690; 83735; 83880; 84484; 85025; 85610; 85730; 93005; 99284

== ENCOUNTER → 2024-05-01 10:00 | Outpatient (CLI) | payer MEDICARE, SELFPAY ==
[2024-05-01 11:17] LABS: BUN Creatinine Ratio 17.6 (6-22); Blood Urea Nitrogen 12 mg/dL (7-17); Calcium 9.5 mg/dL (8.4-10.2); Carbon Dioxide 27 mmol/L (22-32); Chloride 104 mmol/L (98-107); Estimated Glomerular Filt Rate > 60 mL/min (>60); Glucose 161 mg/dL (80-110); HEMOLYSIS 15 (0-50); Potassium 4.1 mmol/L (3.4-5.1); Sodium 140 mmol/L (137-145)
[2024-05-01 11:20] LABS: Hemoglobin A1C% w Est Avg Glu 7.1 % (4.0-6.0)
== END ==
PROVIDERS: PCP Internal Medicine; Referring Provider Internal Medicine; Visit Provider Internal Medicine
DX: E11.69 Type 2 diabetes mellitus with other specified complication (principal); E78.5 Hyperlipidemia, unspecified
CPT/HCPCS: 36415; 80048; 83036

== ENCOUNTER → 2025-01-05 15:24 | Outpatient (CLI) | payer MEDICARE, SELFPAY ==
[2025-01-05 16:24] LABS: Blood Urea Nitrogen 15 mg/dL (7-17); Calcium 9.7 mg/dL (8.4-10.2); Carbon Dioxide 27 mmol/L (22-32); Chloride 106 mmol/L (98-107); Cholesterol 136 mg/dL (140-199); Estimated Glomerular Filt Rate > 60 mL/min (>60); Glucose 135 mg/dL (70-99); HDL Cholesterol 60 mg/dL (40-60); HEMOLYSIS < 15 (0-50); Potassium 3.8 mmol/L (3.4-5.1); Sodium 143 mmol/L (137-145); Triglycerides 127 mg/dL (35-150)
[2025-01-05 16:28] LABS: Hemoglobin A1C% w Est Avg Glu 7.2 % (4.0-6.0)
[2025-01-05 16:36] LABS: Microalbumi Creatinin Ratio Ur 60.0 ug/mg CR (<30)
== END ==
PROVIDERS: PCP Internal Medicine; Referring Provider Internal Medicine; Visit Provider Internal Medicine
DX: E11.69 Type 2 diabetes mellitus with other specified complication (principal); E78.5 Hyperlipidemia, unspecified; I10 Essential (primary) hypertension; E78.2 Mixed hyperlipidemia; Z86.018 Personal history of other benign neoplasm
CPT/HCPCS: 36415; 80048; 80061; 82043; 82570; 83036; 84146; 84450